=== PATIENT | male | born 1995 | race Caucasian/White ===

== ENCOUNTER 2020-06-06 19:23 | Emergency (ER) | payer SELFPAY ==
[2020-06-06 19:33] VITALS: BP 129/66; PULSE 71; TEMP 97.2; BMI 21.6
--- NOTE | 2020-06-06 20:04 | PDOC ---
History of Present Illness - General Chief Complaint: Rash Stated Complaint: HIVES Time Seen by Provider: 06/06/20 19:35 History Source: Patient Exam Limitations: No Limitations - History of Present Illness Initial Comments: 06/06/20 20:04 HISTORY OF PRESENT ILLNESS: 24-year-old male denies medical history presents emergency department for evaluation of hives which have been waxing and waning in size since it started this morning. Reports they are now pruritic and gets worse while he is at rest. Is unable to identify any aggravating or alleviating factors causing the hives. He denies any shortness of breath, drooling, vocal changes, sore throat or wheezing. No recent travel or sick contacts. PAST MEDICAL HISTORY: Denies past medical history SURGICAL HISTORY: Denies ALLERGIES: No known drug allergies REVIEW OF SYSTEMS General/Constitutional: Denies fever or chills. Denies weakness, weight change. HEENT: Denies change in vision. Denies ear pain or discharge. Denies sore throat. Cardiovascular: Denies chest pain or shortness of breath. Respiratory: Denies cough, wheezing, or hemoptysis. Gastrointestinal: Denies nausea, vomiting, diarrhea or constipation. Denies rectal bleeding. Genitourinary: Denies dysuria, frequency, or change in urination. Musculoskeletal: Denies joint or muscle swelling or pain. Denies neck or back pain. Skin and breasts: See HPI Neurologic: Denies headache, vertigo, loss of consciousness, or loss of sensation. Psychiatric: Denies depression or anxiety. Endocrine: Denies increased thirst. Denies abnormal weight change. Hematologic/Lymphatic: Denies anemia, easy bleeding, or history of blood clots. Allergic/Immunologic: Denies hives or skin allergy. Denies latex allergy. PHYSICAL EXAM General Appearance: Well-appearing, appropriately dressed. No apparent distress, no intoxication. HEENT: EOMI, PERRLA, normal ENT inspection, normal voice, TMs normal, pharynx normal. No conjunctival pallor. No photophobia, scleral icterus. Neck: Supple. Trachea midline. No tenderness, rigidity, carotid bruit, stridor, lymphadenopathy, or thyromegaly. Respiratory/Chest: Lungs CTAB. No shortness of breath, chest tenderness, respir atory distress, accessory muscle use. No crackles, rales, rhonchi, stridor, wheezing, dullness Cardiovascular: RRR. S1, S2. No JVD, murmur, bradycardia, tachycardia. Vascular Pulses: Dorsalis-Pedis (R): 2+, Dorsalis-Pedis (L): 2+ Integumentary: Raised wheals present to trunk and extremities. Wheals are different sizes with irregular borders. All lesions are presently subcentimeter. Past History - Medical History Allergies/Adverse Reactions: Allergies Allergy/AdvReac Type Severity Reaction Status Date / Time No Known Allergies Allergy Verified 06/06/20 19:33 COPD: No - Psycho-Social/Smoking History Smoking History: Never smoked - Substance Abuse Hx (Audit-C & DAST Scrn) How often the patient has a drink containing alcohol: 2-4 times / month Score: In Men: 4 or > Positive; In Women: 3 or > Positive: 2 Screen Result (Pos requires Nsg. 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 As a result, errors may occur in the candy catcher process. Effort has been made to correct all grammatical and candy catcher error, but some may have been missed which may produce sporadic inaccurate candy catcher or nonsensical phrases. Discharge - Discharge Information Problems reviewed: Yes Clinical Impression/Diagnosis: Urticaria Condition: Stable Disposition: HOME - Admission No - Follow up/Referral Referrals: Nova Espinoza MD [Staff Physician] - - Patient Discharge Instructions Additional Instructions: Rest, keep cool and dry- avoid strenuous activity or hot /humid environments Less hot showers, no abrasive soaps May use heavy creams like Eucerin or Cetaphil to keep skin moist May apply Aveeno, calamine lotion, [id number] hydrocortisone creams as needed for symptoms May use Benadryl at night for antihistamine, Zyrtec/ Randi or Claritin for daytime antihistamine use to help with itching May use [id number] hydrocortisone cream on all areas except face Try to identify cause for rash and avoid exposures Followup with PMD in one week if no resolution Make appointment with anthropology department chair for evaluation when possible [place], mantenga la calma y la sequedad, evite la actividad extenuante o los ambientes calientes y hmedos Duchas menos calientes, sin jabones abrasivos Puede usar cremas pesadas david Eucerin o Cetaphil para mantener la piel hmeda Puede aplicar Aveeno, locin de calamina, cremas de hidrocortisona de venta jamal segn sea necesario para los sntomas Puede usar Benadryl por la noche para antihistamnicos, Zyrtec/ Randi o Claritin para uso diurno de antihistamnicos para ayudar con la picazn Puede usar crema de hidrocortisona de venta jamal en todas las reas excepto en [place] de identificar la causa de la erupcin cutnea y evitar las exposiciones Seguimiento con PMD en myron semana si no hay resolucin Jordan devika con el dermatlogo para la evaluacin cuando sea posible - Post Discharge Activity
== END 2020-06-06 21:24 | disposition home or self-care (01) ==
LOC: JERFT 19:23
DX: L50.9 Urticaria, unspecified (principal)
CPT/HCPCS: 99283-25